=== PATIENT | male | born 1950 | race Caucasian/White ===

== ENCOUNTER 2016-07-08 10:53 | Outpatient (CLI) | payer MEDICARE | END 2016-07-08 10:54 | LOC: HPCALD 10:53 | PROVIDERS: ATTEND Family Medicine | DX: R53.83 Other fatigue (principal) | CPT/HCPCS: 36415; 84403; 84443 ==

== ENCOUNTER 2024-01-20 10:59 | Outpatient (CLI) | payer MEDICARE | END 2024-01-20 11:00 | disposition home or self-care (01) | LOC: BURRAD 10:59 | PROVIDERS: ATTEND Nurse Practitioner Family | DX: M54.50 Low back pain, unspecified (principal); M47.816 Spondylosis without myelopathy or radiculopathy, lumbar region | CPT/HCPCS: 72110 ==